=== PATIENT | female | born 1940 | race Caucasian/White ===

== ENCOUNTER 2018-05-26 14:12 | Observation (INO) ==
[2018-05-26] MEDS ORDERED: Acetaminophen 325 MG Tablet PO PRN (16:16)
[2018-05-26] MEDS ORDERED: Bisacodyl 10 MG Supp RECTAL PRN (16:16)
[2018-05-26] MEDS ORDERED: Dextrose 50% in Water 50 ML Vial IV.PUSH PRN (17:32)
--- NOTE | 2018-05-26 17:34 | P.HP ---
History of Present Illness Primary Care Physician: Larry Guevara Chief Complaint: Syncope History of Present Illness: This is a 77-year-old female patient with a history of dementia, HTN, hypothyroidism, hyperlipidemia and diabetes who presented to the ED after syncope at home with slurred speech and confusion. Supposedly patient had a syncopal episode while being bathed by her family when she collapsed to the ground and there was slurred speech and confusion noted as well as bowel incontinence. There are no reports of any recent illness including fever, chills, chest pain, headache, lightheadedness, dizziness, abdominal pain, nausea , vomiting, diarrhea or dysuria. Patient seen and examined in room, sitting up in bed alert and awake, with no family at bedside. Patient is oriented x2 to self and place. Confused as to what year it is. Relatively poor historian unable to contribute to medical history or events leading up to presentation to the hospital. Her speech is clear although I do sense some expressive aphasia. Upon exam patient has no neurological deficits all motor function intact with no significant weakness. Head CT on presentation was negative for any acute events, does show an old stroke. CBC and BMP essentially unremarkable. Awaiting ultrasound of carotids, echocardiogram, lipid panel, hemoglobin A1c. Has been admitted for observation - Diagnosis (1) Syncope (2) Transient cerebral ischemia Review of Systems All other systems reviewed negative except as stated in HPI PMF - History History Provided By: Patient, Family Member - Medical History Medical History: Medical History (Last Reviewed 05/26/18 @ 17:27 by Rosaura Hamlin) Dementia Diabetes mellitus High cholesterol - Surgical History Surgical History: Surgical History (Last Reviewed 05/26/18 @ 17:27 by Rosaura Hamlin) History of right hip replacement - Family History Family History: Family History (Last Updated 05/26/18 @ 17:27 by Rosaura Hamlin) Other Family history non-contributory - Social History I have reviewed the patient's Social History: Yes - Tobacco History Second Hand Smoke Exposure: No Smoking Status: Never smoker - Alcohol History How Often Do You Have a Drink Containing Alcohol: Never - Substance Use History Substance History: No History of Abuse Medications and Allergies Active Medications: Active Medications Acetaminophen (Tylenol) 650 mg PO Q4H PRN PRN Reason: Temp > 100.4 Al Hydroxide/Mg Hydroxide (Milk Of Magnesia Liq) 30 ml PO Q12H PRN PRN Reason: Mild Constipation Aspirin (Aspirin Chew) 81 mg PO DAILY BOOM Bisacodyl (Dulcolax Supp) 10 mg RECTAL DAILY PRN PRN Reason: SEVERE CONSITIPATION Lactulose (Lactulose Liq) 30 ml PO DAILY PRN PRN Reason: SEVERE CONSITIPATION Ondansetron HCl (Zofran Inj) 4 mg IV.PUSH Q6H PRN PRN Reason: NAUSEA OR VOMITING Sennosides (Senokot) 17.2 mg PO Q12H PRN PRN Reason: Moderate Constipation Sodium Chloride (Ns Flush) 2 ml IV.FLUSH BID BOOM Sodium Chloride (Ns Flush) 2 ml IV.FLUSH PRN PRN PRN Reason: FLUSH AFTER USING IV ACCESS Allergies Allergy/AdvReac Type Severity Reaction Status Date / Time No Known Allergies Allergy Verified 05/26/18 14:22 Home Medications Medication Instructions Recorded Confirmed Type No Known Home Medications 05/26/18 05/26/18 History atorvastatin 20 mg PO QPM 05/26/18 05/26/18 History levothyroxine 75 mcg PO DAILY 05/26/18 05/26/18 History lisinopril 2.5 mg PO DAILY 05/26/18 05/26/18 History metformin 1,000 mg PO BID 05/26/18 05/26/18 History quetiapine 25 mg PO HS 05/26/18 05/26/18 History Exam Narrative: GENERAL: Well-developed, well-nourished patient in NAD. Alert and oriented x2. Some expressive aphasia noted. SKIN: Warm and dry. No rash. HEAD: Normocephalic. Atraumatic. EYES: Pupils equal and round. No scleral icterus. No injection or drainage. ENT: No nasal bleeding or discharge. Mucous membranes pink and moist. NECK: Supple. Trachea midline. CARDIOVASCULAR: Regular rate and rhythm. S1, S2 noted. 2 out of 6 systolic murmur noted. RESPIRATORY: No accessory muscle use. Clear to auscultation. Breath sounds equal bilaterally. GASTROINTESTINAL: Abdomen soft, non-tender, nondistended. Normoactive bowel sounds x4. MUSCULOSKELETAL: No obvious deformities. Extremities without clubbing, cyanosis , or edema. NEUROLOGICAL: Awake and alert. No obvious cranial nerve deficits. Motor grossly within normal limits. 5/5 muscle strength in bilateral upper and lower extremities. Normal speech. Caprini VTE Risk Assessment Caprini VTE Risk Assessment: Moderate/High Risk (score >= 2) Caprini Risk Assessment Model: Point Value = 1 Point Value = 2 Point Value = 3 Point Value = 5 Age 41-60 Minor surgery BMI > 25 kg/m2 Swollen legs Varicose veins or History of unexplained or recurrent spontaneous Oral contraceptives or hormone replacement Sepsis (< 1 month) Serious lung disease, including pneumonia (< 1 month) Abnormal pulmonary function Acute myocardial infarction Congestive heart failure (< 1 month) History of inflammatory bowel disease Medical patient at bed rest Age 61-74 Arthroscopic surgery Major open surgery (> 45 min) Laparoscopic surgery (> 45 min) Malignancy Confined to bed (> 72 hours) Immobilizing plaster cast Central venous access Age >= 75 History of VTE Family history of VTE Factor V Leiden Prothrombin [id number] Lupus anticoagulant Anticardiolipin antibodies Elevated serum homocysteine Heparin-induced thrombocytopenia Other congenital or acquired thrombophilia Stroke (< 1 month) Elective arthroplasty Hip, pelvis, or leg fracture Acute spinal cord injury (< 1 month) Prophylaxis Regimen: Total Risk Factor Score Risk Level Prophylaxis Regimen 0-1 Low Early ambulation 2 Moderate Order ONE of the following: *Sequential Compression Device (SCD) *Heparin 5000 units SQ BID 3-4 Higher Order ONE of the following medications: *Heparin 5000 units SQ TID *Enoxaparin/Lovenox 40 mg SQ daily (WT < 150 kg, CrCl > 30 mL/min) *Enoxaparin/Lovenox 30 mg SQ daily (WT < 150 kg, CrCl > 10-29 mL/min) *Enoxaparin/Lovenox 30 mg SQ BID (WT < 150 kg, CrCl > 30 mL/min) AND/OR *Sequential Compression Device (SCD) 5 or more Highest Order ONE of the following medications: *Heparin 5000 units SQ TID (Preferred with Epidurals) *Enoxaparin/Lovenox 40 mg SQ daily (WT < 150 kg, CrCl > 30 mL/min) *Enoxaparin/Lovenox 30 mg SQ daily (WT < 150 kg, CrCl > 10-29 mL/min) *Enoxaparin/Lovenox 30 mg SQ BID (WT < 150 kg, CrCl > 30 mL/min) AND *Sequential Compression Device (SCD) Assessment and Plan - Assessment (1) Syncope Code(s): R55 - Syncope and collapse Status: Acute (2) Transient cerebral ischemia Code(s): G45.9 - Transient cerebral ischemic attack, unspecified Status: Acute - Plan This is as 77-year-old female patient who presented to the ED with: Syncope History of dementia -Patient presented status post syncope at home with slurred speech and confusion. -Head CT reviewed showing no acute intracranial changes. Showing old stroke. Will add MRI of the brain, follow. -ECHO ordered and pending. Follow. -Added lipid panel and hemoglobin A1c. Pending. -US bilateral carotids ordered as well as EEG. -PT and OT ordered. -Close monitoring and neuro checks. -Continue on cardiac telemetry, monitor for any arrhythmias. -EKG reviewed from presentation reading atrial fibrillation. From personal review this appears to be artifact and is NSR. On monitor and exam she is currently NSR. Continue to monitor. -If needed will consult neurology, await workup for now. Type 2 Diabetes mellitus, chronic -ACCU check ACHS, sliding scale. Cover as needed. Monitor blood sugar trends. Hold home Metformi. Hyperlipidemia, chronic -Continue home statin. Hypothyroidism -Check TSH. Continue levothyroxine. Hypertension, chronic -Continue home lisinopril. Monitor blood pressure trends. DVT Prophylaxis: SCDs.
[2018-05-26] MEDS: Insulin NovoLOG Aspart Correctional Sugar Inj SQ SCH (21:03)
[2018-05-27 06:49] LABS: Baso % (Auto) 0.5 % (0.0-2.0); Eos % (Auto) 0.5 % (0.0-4.0); Hematocrit 34.7 % (35.0-46.0); Hemoglobin 11.7 gm/dL (11.6-15.3); Lymph # (Auto) 1.4 th/mm3 (1.0-4.8); Lymph % (Auto) 23.3 % (9.0-44.0); Mean Corpuscular HGB Conc 33.7 % (32.0-36.0); Mean Corpuscular Hemoglobin 31.8 pg (27.0-34.0); Mean Corpuscular Volume 94.4 fL (80.0-100.0); Mean Platelet Volume 10.3 fL (7.0-11.0); Mono # (Auto) 0.4 th/mm3 (0.0-0.9); Mono % (Auto) 6.1 % (0.0-8.0); Neut # (Auto) 4.1 th/mm3 (1.8-7.7); Neut % (Auto) 69.6 % (16.0-70.0); Platelet Count 161 th/mm3 (150-450); Red Blood Count 3.68 mil/mm3 (4.00-5.30); Red Cell Distribution Width 14.2 % (11.6-17.2); White Blood Count 5.9 th/mm3 (4.0-11.0)
[2018-05-27 06:58] LABS: Chloride 105 meq/L (98-107); Potassium 3.3 meq/L (3.5-5.1); Sodium 140 meq/L (136-145)
[2018-05-27 07:04] LABS: Anion Gap 7 meq/L (5-15); Blood Urea Nitrogen 18 mg/dL (7-18); Calcium 9.3 mg/dL (8.5-10.1); Carbon Dioxide 27.6 meq/L (21.0-32.0); Glucose,Random 125 mg/dL (74-106)
[2018-05-27 07:08] LABS: Glomerular Filtration Rate Greater Than 89 mL/min (>89)
[2018-05-27] MEDS: Insulin NovoLOG Aspart Correctional Sugar Inj SQ SCH ×2 (08:32→12:23)
--- NOTE | 2018-05-27 09:35 | US ---
EXAM DATE: 05/27/2018 9:33 AM EST AGE/SEX: 77 years / Female INDICATIONS: Syncope. CLINICAL DATA: This is the patient's initial encounter. Patient reports that signs and symptoms have been present for 1 day and indicates a pain score of 0/10. MEDICAL/SURGICAL HISTORY: Dementia. Diabetes. Hypercholesterolemia. Hypothyroidism. . Right total hip replacement. COMPARISON: No prior exams available for comparison. VELOCITY PARAMETERS: ICA/CCA Ratio: Right 1.24 , Left 0.98 ICA: Right 77 cm/sec, Left 87 cm/sec CCA: Right 62 cm/sec, Left 99 cm/sec ECA: Right 78 cm/sec, Left 114 cm/sec Vertebral: Right 53 cm/sec antegrade, Left 69 cm/sec antegrade FINDINGS: Right Carotid: Mild arteriosclerotic plaque is visualized.The waveforms are within normal limits. Left Carotid: Mild arteriosclerotic plaque is visualized. The waveforms are within normal limits. Other: None. CONCLUSION: 1. Right Internal Carotid Artery: No significant stenosis or atherosclerotic plaque is visualized. 2. Left Internal Carotid Artery: No significant stenosis or atherosclerotic plaque is visualized. Electronically signed by: Da Negro MD Board Certified Radiologist 05/27/2018 9:34 AM EST
[2018-05-27 10:03] LABS: Cholesterol 122 mg/dL (120-200); Triglycerides 53 mg/dL (42-150)
[2018-05-27 10:04] LABS: Chol/HDL Ratio 2.21 Ratio; HDL Cholesterol 55.1 mg/dL (40.0-60.0); LDL Cholesterol,Calculated 56 mg/dL (0-99)
--- NOTE | 2018-05-27 10:12 | P.PNIM ---
Subjective Interval history: Follow up syncope and possible TIA. 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 No acute events overnight. Patient is pleasantly confused. Mild expressive aphasia. Vital signs stable. Afebrile. Physical Exam Vital signs: Vital Signs 05/26/18 18:00 05/26/18 20:00 05/27/18 00:00 Temperature 99.0 F 99.2 F Pulse Rate 92 H 72 85 Respiratory Rate 18 16 16 Blood Pressure 162/67 H 149/78 H 142/97 H Pulse Oximetry 95 94 L 05/27/18 04:00 05/27/18 07:00 05/27/18 08:00 Temperature 99.0 F 97.4 F L Pulse Rate 85 80 Respiratory Rate 16 18 18 Blood Pressure 158/92 H 148/84 H Pulse Oximetry 95 98 Intake & Output 05/26/18 05/27/18 05/27/18 18:59 06:59 18:59 Intake Total 480 / 480 Balance 480 / 480 Intake: Oral 480 / 480 Other: # Voids 1 Date of Last Bowel Movement 05/25/18 # Bowel Movements 0 Narrative: GENERAL: Well-developed, well-nourished patient in NAD. Alert and oriented x2. Some expressive aphasia noted. SKIN: Warm and dry. No rash. HEAD: Normocephalic. Atraumatic. EYES: Pupils equal and round. No scleral icterus. No injection or drainage. ENT: No nasal bleeding or discharge. Mucous membranes pink and moist. NECK: Supple. Trachea midline. CARDIOVASCULAR: Regular rate and rhythm. S1, S2 noted. 2 out of 6 systolic murmur noted. RESPIRATORY: No accessory muscle use. Clear to auscultation. Breath sounds equal bilaterally. GASTROINTESTINAL: Abdomen soft, non-tender, nondistended. Normoactive bowel sounds x4. MUSCULOSKELETAL: No obvious deformities. Extremities without clubbing, cyanosis , or edema. NEUROLOGICAL: Awake and alert. No obvious cranial nerve deficits. Motor grossly within normal limits. 5/5 muscle strength in bilateral upper and lower extremities. Normal speech. Results - Labs CBC & Chem 7: 05/27/18 06:20 05/27/18 06:20 Laboratory Results - last 24 hr 05/26/18 05/26/18 05/27/18 17:51 20:05 06:20 CBC w Diff WBC RBC Hgb Hct MCV MCH MCHC RDW Plt Count MPV Neut % (Auto) Lymph % (Auto) [place] % (Auto) Eos % (Auto) Baso % (Auto) Neut # (Auto) Lymph # (Auto) [place] # (Auto) Eos # (Auto) Baso # (Auto) WBC Differential Differential Comment Sodium 140 Potassium 3.3 L D Chloride 105 Carbon Dioxide 27.6 Anion Gap 7 BUN 18 Creatinine 0.52 Estimated GFR Greater than 89 POC Glucose 143 H 256 H Random Glucose 125 H Calcium 9.3 Triglycerides 53 Cholesterol 122 LDL Cholesterol, Calc 56 HDL Cholesterol 55.1 Cholesterol/HDL Ratio 2.21 05/27/18 05/27/18 06:20 07:27 CBC w Diff Auto diff final WBC 5.9 RBC 3.68 L Hgb 11.7 Hct 34.7 L MCV 94.4 MCH 31.8 MCHC 33.7 RDW 14.2 Plt Count 161 MPV 10.3 Neut % (Auto) 69.6 Lymph % (Auto) 23.3 [place] % (Auto) 6.1 Eos % (Auto) 0.5 Baso % (Auto) 0.5 Neut # (Auto) 4.1 Lymph # (Auto) 1.4 [place] # (Auto) 0.4 Eos # (Auto) 0.0 Baso # (Auto) 0.0 WBC Differential . Differential Comment . Sodium Potassium Chloride Carbon Dioxide Anion Gap BUN Creatinine Estimated GFR POC Glucose 123 H Random Glucose Calcium Triglycerides Cholesterol LDL Cholesterol, Calc HDL Cholesterol Cholesterol/HDL Ratio - Imaging Impressions Carotid Doppler Study 05/27/18 00:00 CONCLUSION: 1. Right Internal Carotid Artery: No significant stenosis or atherosclerotic plaque is visualized. 2. Left Internal Carotid Artery: No significant stenosis or atherosclerotic plaque is visualized. Assessment and Plan - Assessment (1) Syncope Code(s): R55 - Syncope and collapse Status: Inactive (2) Transient cerebral ischemia Code(s): G45.9 - Transient cerebral ischemic attack, unspecified Status: Inactive - Plan This is as 77-year-old female patient who presented to the ED with: Syncope History of dementia -Patient presented status post syncope at home with slurred speech and confusion. -Head CT reviewed showing no acute intracranial changes. Showing old stroke. Will add MRI of the brain, follow. -ECHO ordered and pending. Follow. -Lipid panel normal. hemoglobin A1c. Pending. -US bilateral carotids reviewed without any stenosis. Ordered as well as EEG, pending. -PT and OT ordered, pending evaluation. -Close monitoring and neuro checks. -Continue on cardiac telemetry, monitor for any arrhythmias. None overnight. -EKG reviewed from presentation reading atrial fibrillation. From personal review this appears to be artifact and is NSR. On monitor and exam she is currently NSR. Continue to monitor. -If needed will consult neurology, await workup for now. Hypokalemia -K 3.2, replacement ordered. Follow BMP. Type 2 Diabetes mellitus, chronic -ACCU check ACHS, sliding scale. Cover as needed. Monitor blood sugar trends. Hold home Metformi. Hyperlipidemia, chronic -Continue home statin. Hypothyroidism -TSH WNL. Continue levothyroxine. Hypertension, chronic -Continue home lisinopril. Monitor blood pressure trends. DVT Prophylaxis: SCDs. Discharge Planning: Awaiting MRI.
[2018-05-27] MEDS ORDERED: Gadobutrol PF 2 MMOL/2 ML Vial (for RAD) IV.SIG ONE (12:08)
--- NOTE | 2018-05-27 12:32 | MR ---
EXAM DATE: 05/27/2018 12:12 PM EST AGE/SEX: 77 years / Female INDICATIONS: . Syncope. CLINICAL DATA: This is the patient's subsequent encounter. Patient reports that signs and symptoms h ave been present for 2 days and indicates a pain score of 0/10. MEDICAL/SURGICAL HISTORY: Hypertension. Diabetes mellitus type II. . right hip replacement COMPARISON: [facility], CT HEAD W/O CONTRAST, 05/26/2018. . TECHNIQUE: Multiplanar, multisequence examination of the brain was performed without and with 5 ml Ga davist (gadobutrol) contrast as a single exam dose. FINDINGS: Cerebrum: The ventricles are normal for age. No evidence of midline shift, mass lesion, hemorrhage or acute infarction. No extraaxial fluid collections are seen. The pituitary gland and suprasellar cistern are normal in configuration. White Matter: Patchy benign appearing periventricular white matter signal changes, likely microvascu lar ischemic in etiology. Posterior Fossa: The cerebellum and brainstem are intact. The 4th ventricle is midline. The cerebel lopontine angle is unremarkable. The cerebellar tonsils are normal in position. Diffusion Imaging: No focal areas of restricted diffusion are seen. No evidence of acute infarction . Extracranial: The visualized portions of the orbits and paranasal sinuses are unremarkable. Post Contrast: No abnormal areas of parenchymal or dural enhancement. No evidence of blood-brain ba rrier breakdown. CONCLUSION: No acute intracranial findings Electronically signed by: Barber Vicente MD Board Certified Radiologist 05/27/2018 12:30 PM EST
--- NOTE | 2018-05-27 14:24 | P.DCO ---
- Diagnosis (1) Dementia Status: Acute (2) TIA (transient ischemic attack) Status: Acute - Physical Therapy Order: Evaluate and treat, Improve ambulation, Strength and gait training - Home Health Nursing Order: Medical education, Signs/symptoms of disease process, Medication education-adverse effect, Nursing assessment with vital signs - Case Management Consult Case Management Consult-Home Health: Yes - Certification I have seen patient Mago Taylor on 05/27/18. My clinical findings support the need for the requested home health care services because: Impaired cognition/judgement I certify that my clinical findings support that this patient is homebound because: Unsteady gait/balance
--- NOTE | 2018-05-27 16:09 | ECHRPT ---
Indication: CVA/TIA CONCLUSIONS The left ventricular systolic function is low normal with an estimated ejection fraction of 50%. Mild mitral valve regurgitation. Very technically difficult study with limited images obtained. BP: / HR: Rhythm: MEASUREMENTS (Male / Female) Normal Values Technical Quality:Very technically difficult study DOPPLER AV Peak Velocity 148.0 cm/s AV Peak Gradient 8.8 mmHg LVOT Peak Velocity 117.0 cm/s LVOT Peak Gradient 5.5 mmHg Mitral E Point Velocity 83.4 cm/s Mitral A Point Velocity 103.0 cm/s Mitral E to A Ratio 0.8 LV E' Lateral Velocity 11.2 cm/s Mitral E to LV E' Lateral Ratio 7.4 LV E' Septal Velocity 7.9 cm/s Mitral E to LV E' Septal Ratio 10.6 TR Peak Velocity 144.0 cm/s TR Peak Gradient 8.3 mmHg Right Atrial Pressure 10.0 mmHg Pulmonary Artery Systolic Pressu 18.3 mmHg Right Ventricular Systolic Press 18.3 mmHg FINDINGS LEFT VENTRICLE The left ventricular systolic function is low normal with an estimated ejection fraction of 50%. MITRAL VALVE Mild mitral valve regurgitation. AORTIC VALVE The aortic valve is not well visualized. No aortic valve stenosis or regurgitation. TRICUSPID VALVE The tricuspid valve is not well visualized. PULMONARY VALVE The pulmonary valve is not well visualized. VESSELS The inferior vena cava was not well visualized. Saskia Kohli MD, FACC (Electronically Signed) Final Date:27 May 2018 16:08
--- NOTE | 2018-05-27 17:14 | MG ---
cc: Giovanny Carr MD, PhD TEST NUMBER: [id number] DESCRIPTION: The background activity is comprised of symmetrical alpha activity with a frequency of 8 Hz, amplitude about 20 microvolts. There is some muscle artifact and occasional eye movement artifact. During drowsiness, there is slowing in the theta range. No lateralizing features identified. No epileptiform features are seen. Photic results in a normal driving response. INTERPRETATION: Normal electroencephalogram. Giovanny Carr MD, PhD XOCHILT/ct , 04:35 PM , 04:39 PM
[2018-05-27 17:17] LABS: Hemoglobin A1c 5.7 % (4.3-6.0)
== END 2018-05-27 16:35 | disposition home health service (06) ==
LOC: PHEDDLT 14:12 → PH3 14:12
PROVIDERS: ADMIT Internal Medicine; ATTEND Internal Medicine
DX: E78.00 Pure hypercholesterolemia, unspecified; F03.90 Unspecified dementia, unspecified severity, without behavioral disturbance, psychotic disturbance, mood disturbance, and anxiety; Z79.84 Long term (current) use of oral hypoglycemic drugs; Z86.73 Personal history of transient ischemic attack (TIA), and cerebral infarction without residual deficits; Z96.641 Presence of right artificial hip joint; E87.6 Hypokalemia; G45.9 Transient cerebral ischemic attack, unspecified; R55 Syncope and collapse; I48.91 Unspecified atrial fibrillation; E11.9 Type 2 diabetes mellitus without complications; E78.5 Hyperlipidemia, unspecified; E03.9 Hypothyroidism, unspecified; I10 Essential (primary) hypertension
CPT/HCPCS: 70450; 70553; 71010; 71045; 80048; 80061; 82550; 82948; 82962; 83036; 84443; 84484; 85025; 85610; 85730; 87070; 93005; 93306; 93880; 95819; 96372; 97162; 97167; 99285; A9585; G0378; G8987; G8988; J1815